=== PATIENT | female | born 1970 | race Caucasian/White ===

== ENCOUNTER 2016-10-23 21:23 | Observation (INO) | payer MEDICARE ==
[2016-10-23] MEDS ORDERED: Pepcid 20 MG VIAL IV ONE ×2 (22:03→22:31)
[2016-10-23] MEDS ORDERED: BABY ASPIRIN 81 MG CHEW PO ONE (22:03)
[2016-10-23 22:09] LABS: BASOPHIL % 0.3 % (0.0-0.4); Eosinophil % 3.7 % (0.00-5.0); Granulocytes % 53.3 % (36.0-66.0); Lymphocytes % 34.5 % (24.0-44.0); Mean Cell Volume 90.8 fl (78-100); Mean Corpuscular Hemoglobin 29.6 pg (26-32); Monocytes % 8.2 % (0.0-12.0); Platelet Count 225 K/mm3 (150-450); Red Blood Count 4.25 M/mm3 (4.1-5.4); Red Cell Distribution Width 14.2 % (11.5-14.0)
--- NOTE | 2016-10-23 22:10 | ERPHSYRPT ---
- History of Present Illness Time Seen by Provider: 10/23/16 21:44 Historian: patient, family (brother) Patient Subjective Stated Complaint: STATES ONSET OF CP AT 2100 TONIGHT WHILE AT REST - DIAPHORESIS - RADIATION TO THE LEFT ARM - STATES THAT SHE IS ALWAYS SOB Triage Nursing Assessment: WC TO TREATMENT AREA - ASSISTANCE TO CART X 2 - MOVES ALL EXTREMITIES WITH EQUAL WEAKNESS. ALERT/ORIENTED - FLAT AFFECT. SKIN FLUSHED/HOT/DIAPHORESIS - NO RASH/INJURY APPRECIATED. RESPS LABORED PER EXERTION Physician History: CC: left chest pain Hx: 46 y/o patient with excessive BMI. She has fam hx of heart disease. Tonite while watching TV she had left sided chest tightness. Told brother it was central chest. She had episode of diaphoresis and light headed. Mild but not much shortness of breath. She has hx of GERD and was born with single kidney. She has hx of valvular heart disease and arthritis. Pain now mostly gone. No rash. Timing/Duration: today (8PM) Location: substernal Chest Pain Radiation: no radiation Severity of Pain-Max: moderate Severity of Pain-Current: none Nitro Today/Relief: no nitro taken today Aspirin Treatment Today: 81 mg x 2, provided by ED Allergies/Adverse Reactions: cephalexin monohydrate [From Keflex] Allergy (Verified 10/23/16 21:25) meperidine HCl [From Demerol] Allergy (Verified 10/23/16 21:25) Home Medications: Cholecalciferol (Vitamin D3) [Vitamin D3] 1,000 unit PO DAILY 10/23/16 [History] Dexlansoprazole [Dexilant] 60 mg PO DAILY 10/23/16 [History] Famotidine [Pepcid] 40 mg PO BID 10/23/16 [History] Fluticasone/Salmeterol 115/21 [Advair Hfa 115/21 Common canister*] 2 puff IH BIDRT 10/23/16 [History] Levothyroxine Sodium [Synthroid] 200 mcg PO DAILY 10/23/16 [History] Liraglutide [Victoza 2-Alejandro] 0.6 mg SQ DAILY 10/23/16 [History] Meloxicam 7.5 mg [Mobic 7.5 MG] 7.5 mg PO DAILY 10/23/16 [History] Simvastatin [Zocor] 20 mg PO DAILY 10/23/16 [History] Hx Tetanus, Diphtheria Vaccination/Date Given: Yes Hx Influenza Vaccination/Date Given: No Hx Pneumococcal Vaccination/Date Given: No Immunizations Up to Date: Yes - Review of Systems Constitutional: No Fever, No Chills Eyes: No Symptoms Ears, Nose, & Throat: No Symptoms Respiratory: No Cough, No Dyspnea Cardiac: Chest Pain, No Edema, No Syncope Abdominal/Gastrointestinal: No Abdominal Pain, No Nausea, No Vomiting Genitourinary Symptoms: No Dysuria Musculoskeletal: No Back Pain Skin: No Rash Neurological: No Headache All Other Systems: Reviewed and Negative - Past Medical History Pertinent Past Medical History: Yes Neurological History: No Pertinent History ENT History: No Pertinent History Cardiac History: Congestive Heart Failure, Hypertension, Other Respiratory History: CHF, COPD, Pneumonia, Sleep Apnea Endocrine Medical History: Hypothyroidism Musculoskeletal History: Arthritis, Rheumatoid Arthritis GI Medical History: GERD, Gallbladder Disease History: Other Psycho-Social History: Depression Female Reproductive Disorders: Other Other Medical History: MORBID OBESETY. 2 HEART VALVES THAT DOESNT OPEN CORRECTLY ET FILL UP WITH EDEMA\. SCOLIOSIS. 2 BAD KNEES - Past Surgical History Past Surgical History: Yes Neuro Surgical History: No Pertinent History Cardiac: No Pertinent History Respiratory: No Pertinent History Gastrointestinal: Cholecystectomy Genitourinary: No Pertinent History Musculoskeletal: No Pertinent History Female Surgical History: Other Other Surgical History: LAPROSCOPIC SURGERY. TUBES IN TIFFANI EARS - Social History Smoking Status: Never smoker Exposure to second hand smoke: No Drug Use: none Patient Lives Alone: No - Female History Hx Last Menstrual Period: N/A - Nursing Vital Signs Temperature: 98.2 F Temperature Source: Oral Pulse Rate: 86 Respiratory Rate: 20 Pain Intensity: 7 - Physical Exam General Appearance: alert Eye Exam: PERRL/EOMI Ears, Nose, Throat Exam: normal ENT inspection, moist mucous membranes Neck Exam: normal inspection, non-tender, supple Respiratory Exam: normal breath sounds, lungs clear Cardiovascular Exam: regular rate/rhythm Gastrointestinal/Abdomen Exam: soft, No tenderness, No distention, No mass, No guarding Extremity Exam: normal inspection Neurologic Exam: alert, oriented x 3, cooperative, sensation nml, No motor deficits Skin Exam: warm, dry, No rash SpO2 Interpretation: normal SpO2: 98 Oxygen Delivery: Room Air - Course Nursing assessment & vital signs reviewed: Yes EKG Interpreted by Me: RATE (86), Sinus Rhythm, Left [place] Deviation, NORMAL INTERVALS (QTc 436), Non-specific ST Changes, Other (Poor R wave progression) - Radiology Exams cxr X-ray Interpretation: Reviewed by me, Negative (CM, poor inspiration) Ordered Tests: Active Orders 24 hr Category Date Time Status Aircraft [employer] STAT Care 10/23/16 22:03 Active Cath for Specimen-Straight STAT Care 10/23/16 22:04 Active EKG-ER Only STAT Care 10/23/16 22:03 Active IV Insertion STAT Care 10/23/16 22:03 Active Pulse Oximetry (ED) STAT Care 10/23/16 22:03 Active CHEST 1 VIEW (PORTABLE) Stat Exams 10/23/16 22:03 Taken CBC W DIFF Stat Lab 10/23/16 22:06 Completed CMP Stat Lab 10/23/16 22:06 Completed Free T4 Stat Lab 10/23/16 23:25 Ordered TROPONIN Q3H Lab 10/23/16 22:00 Completed TROPONIN Q3H Lab 10/24/16 01:15 Ordered TROPONIN Q3H Lab 10/24/16 04:15 Ordered TROPONIN Q3H Lab 10/24/16 07:15 Ordered TROPONIN Q3H Lab 10/24/16 10:15 Ordered TSH [TSH, 3RD Generation] Stat Lab 10/23/16 23:24 Ordered UA W/ MICROSCOPIC Stat Lab 10/23/16 22:25 Completed Medication Summary Discontinued Medications Generic Name Dose Route Start Last Admin Trade Name Freq PRN Reason Stop Dose Admin Aspirin 162 mg 10/23/16 22:03 10/23/16 22:32 Baby Aspirin 81 Mg Chew PO 10/23/16 22:04 162 mg STAT ONE Administration Aspirin Confirm 10/23/16 22:31 Baby Aspirin 81 Mg Chew Administered 10/23/16 22:32 Dose 162 mg .ROUTE .STK-MED ONE Famotidine 20 mg 10/23/16 22:03 10/23/16 22:32 Pepcid 20 Mg Vial IV 10/23/16 22:04 20 mg STAT ONE Administration Famotidine Confirm 10/23/16 22:31 Pepcid 20 Mg Vial Administered 10/23/16 22:32 Dose 20 mg IV .STK-MED ONE Lab/Rad Data: Laboratory Result Diagrams 10/23/16 22:06 10/23/16 22:06 Laboratory Results 10/23/16 10/23/16 10/23/16 Range/Units 22:25 22:06 22:06 WBC 7.0 (4.0-10.5) K/mm3 RBC 4.25 (4.1-5.4) M/mm3 Hgb 12.6 (12.0-16.0) gm/dl Hct 38.6 (35-47) % MCV 90.8 (78-100) fl MCH 29.6 (26-32) pg MCHC 32.6 (32-36) g/dl RDW 14.2 H (11.5-14.0) % Plt Count 225 (150-450) K/mm3 MPV 10.0 H (6-9.5) fl Gran % 53.3 (36.0-66.0) % Lymphocytes % 34.5 (24.0-44.0) % Monocytes % 8.2 (0.0-12.0) % Eosinophils % 3.7 (0.00-5.0) % Basophils % 0.3 (0.0-0.4) % Basophils # 0.02 (0-0.4) Sodium 147 H (136-145) mEq/L Potassium 4.0 (3.5-5.1) mEq/L Chloride 109 H (98-107) mEq/L Carbon Dioxide 26.6 (21-32) mEq/L Anion Gap 15.4 H (5-15) MEQ/L BUN 16 (9-20) mg/dL Creatinine 1.23 (0.55-1.30) mg/dl Estimated GFR 50 ML/MIN Glucose 108 (70-110) MG/DL Calcium 9.2 (8.5-10.1) mg/dL Total Bilirubin 0.4 (0.2-1.0) mg/dL AST 24 (15-37) U/L ALT 40 (12-78) U/L Alkaline Phosphatase 81 (46-116) U/L Troponin I (0.000-0.056) ng/ml Serum Total Protein 6.9 (6.4-8.2) gm/dL Albumin 3.5 (3.4-5.0) g/dL Ur Collection Type CATH Urine Color YELLOW (YELLOW) Urine Appearance CLEAR (CLEAR) Urine pH 5.0 (5-6) Ur Specific [place] 1.025 (1.005-1.025) Urine Protein TRACE (Negative) Urine Glucose (UA) NEGATIVE (NEGATIVE) mg/dL Urine Ketones TRACE (NEGATIVE) Urine Nitrite NEGATIVE (NEGATIVE) Urine Bilirubin SMALL (NEGATIVE) Urine Urobilinogen 0.2 (0-1) mg/dL Urine WBC (Auto) NEGATIVE (NEGATIVE) Urine RBC (Auto) NEGATIVE (0-5) [place]erson/ul Urine Bacteria RARE (NEGATIVE) /HPF Specimen Received 10/23/16:2225 10/23/16 Range/Units 22:00 WBC (4.0-10.5) K/mm3 RBC (4.1-5.4) M/mm3 Hgb (12.0-16.0) gm/dl Hct (35-47) % MCV (78-100) fl MCH (26-32) pg MCHC (32-36) g/dl RDW (11.5-14.0) % Plt Count (150-450) K/mm3 MPV (6-9.5) fl Gran % (36.0-66.0) % Lymphocytes % (24.0-44.0) % Monocytes % (0.0-12.0) % Eosinophils % (0.00-5.0) % Basophils % (0.0-0.4) % Basophils # (0-0.4) Sodium (136-145) mEq/L Potassium (3.5-5.1) mEq/L Chloride (98-107) mEq/L Carbon Dioxide (21-32) mEq/L Anion Gap (5-15) MEQ/L BUN (9-20) mg/dL Creatinine (0.55-1.30) mg/dl Estimated GFR ML/MIN Glucose (70-110) MG/DL Calcium (8.5-10.1) mg/dL Total Bilirubin (0.2-1.0) mg/dL AST (15-37) U/L ALT (12-78) U/L Alkaline Phosphatase (46-116) U/L Troponin I < 0.017 (0.000-0.056) ng/ml Serum Total Protein (6.4-8.2) gm/dL Albumin (3.4-5.0) g/dL Ur Collection Type Urine Color (YELLOW) Urine Appearance (CLEAR) Urine pH (5-6) Ur Specific [place] (1.005-1.025) Urine Protein (Negative) Urine Glucose (UA) (NEGATIVE) mg/dL Urine Ketones (NEGATIVE) Urine Nitrite (NEGATIVE) Urine Bilirubin (NEGATIVE) Urine Urobilinogen (0-1) mg/dL Urine WBC (Auto) (NEGATIVE) Urine RBC (Auto) (0-5) Herson/ul Urine Bacteria (NEGATIVE) /HPF Specimen Received - Progress Progress Note: 10/23/16 22:10 20 ga PIV placed with sono guidance right AC X 1 stick. 10/23/16 23:28 Remains pain free but feels poorly. She had dipahoresis and has famn hx heart disease. PERC neg. She feels most comfortable with chest pain observation. Called Dr Jovani Sheriff (oc) for chest pain tele obs. Discussed with : Valentino Will see patient in: hospital (observation) Counseled pt/family regarding: lab results, diagnosis, need for follow-up, rad results - Departure Time of Disposition: 23:28 Departure Disposition: Observation Clinical Impression: Chest pain Condition: Stable Critical Care Time: No Referrals: HENRIQUE MURO [Primary Care Provider] -
[2016-10-23 22:31] LABS: ALBUMIN 3.5 g/dL (3.4-5.0); ANION GAP 15.4 MEQ/L (5-15); BILIRUBIN,TOTAL 0.4 mg/dL (0.2-1.0); Carbon Dioxide 26.6 mEq/L (21-32); Total Protein 6.9 gm/dL (6.4-8.2)
[2016-10-23] MEDS ORDERED: BABY ASPIRIN 81 MG CHEW ONE (22:31)
[2016-10-23 22:33] LABS: Collection Type CATH
[2016-10-23 22:34] LABS: COMPLETE URINE MICROSCOPIC? YES
[2016-10-23 22:36] LABS: Bacteria RARE /HPF (NEGATIVE)
[2016-10-23] MEDS ORDERED: Senokot-S Tablet PO PRN (23:56)
[2016-10-23] MEDS ORDERED: TYLENOL 325 MG PO PRN (23:56)
[2016-10-23] MEDS ORDERED: MAALOX ES 30 ML UNIT DOSE PO PRN (23:56)
[2016-10-23] MEDS ORDERED: MILK OF MAGNESIA 30 ML PO PRN (23:56)
[2016-10-23] MEDS ORDERED: Zofran 4 MG/2 ML VIAL IV PRN (23:56)
--- NOTE | 2016-10-24 06:41 | PCM.HP ---
History of Present Illness - Chief Complaint Chief Complaint: chest pain Date: 10/24/16 History of Present Illness: is a 46 year old female. with morbid obesity who developed left sided chest pressure and pain yesterday evening that she had not had before she was short of breath with this as well. She had not had any coughing or illness prior to this no shortness of breath. she is currently only having some aching in her right rib cage now. The left sided chest pain has resolved. She had an echo in the distant past and was told she had leaking valves. She states she has never had a stress test. - Review of Systems Constitutional: No Symptoms Eyes: No Symptoms Ears, Nose, & Throat: No Symptoms Respiratory: Short Of Breath, No Cough Cardiac: Chest Pain, No Edema, No Syncope Abdominal/Gastrointestinal: No Abdominal Pain, No Nausea, No Vomiting, No Diarrhea Genitourinary Symptoms: No Dysuria Musculoskeletal: No Back Pain, No Neck Pain Skin: No Rash Neurological: No Dizziness, No Focal Weakness, No Sensory Changes Psychological: No Symptoms Endocrine: No Symptoms Hematologic/Lymphatic: No Symptoms Immunological/Allergic: No Symptoms Medications & Allergies Home Medications: Home Medication List Cholecalciferol (Vitamin D3) [Vitamin D3] 1,000 unit PO DAILY 10/23/16 [History Confirmed 10/24/16] Dexlansoprazole [Dexilant] 60 mg PO DAILY 10/23/16 [History Confirmed 10/24/16] Famotidine [Pepcid] 40 mg PO BID 10/23/16 [History Confirmed 10/24/16] Fluticasone/Salmeterol 115/21 [Advair Hfa 115/21 Common canister*] 2 puff IH BIDRT 10/23/16 [History Confirmed 10/24/16] Levothyroxine Sodium [Synthroid] 200 mcg PO DAILY 10/23/16 [History Confirmed ] Liraglutide [Victoza 2-Alejandro] 0.6 mg SQ DAILY 10/23/16 [History Confirmed 10/24/16 ] Meloxicam 7.5 mg [Mobic 7.5 MG] 7.5 mg PO DAILY 10/23/16 [History Confirmed 10/24/16] Simvastatin [Zocor] 20 mg PO DAILY 10/23/16 [History Confirmed 10/24/16] Allergies/Adverse Reactions: Allergies Allergy/AdvReac Type Severity Reaction Status Date / Time adhesive tape Allergy Mild Rash Verified 10/24/16 00:20 cephalexin monohydrate Allergy Verified 10/24/16 00:20 [From Keflex] meperidine HCl [From Demerol] Allergy Verified 10/24/16 00:20 - Past Medical History Past Medical History: Yes Neurological History: No Pertinent History ENT History: No Pertinent History Cardiac History: Congestive Heart Failure, Hypertension, Other Respiratory History: Asthma, CHF, COPD, Pneumonia, Sleep Apnea Endocrine Medical History: Diabetes Type II, Hypothyroidism Musculoskelatal History: Arthritis, Rheumatoid Arthritis GI Medical History: GERD, Gallbladder Disease, Polyps History: Other Pyscho-Social History: Anxiety, Depression Reproductive Disorders: Other Comment: MORBID OBESETY. 2 HEART VALVES THAT DOESNT OPEN CORRECTLY ET FILL UP WITH EDEMA\. SCOLIOSIS. 2 BAD KNEES. pt reports borderline DM, is on diabetic medication. pt reports that she had a cyst on her liver at one time - Female History Hx Last Menstrual Period: N/A Are you now?: No - Past Surgical History Past Surgical History: Yes Neuro Surgical History: No Pertinent History Cardiac History: No Pertinent History Respiratory Surgery: No Pertinent History GI Surgical History: Cholecystectomy Genitourinary Surgical Hx: No Pertinent History Musculskeletal Surgical Hx: No Pertinent History Female Surgical History: Other Other Surgical History: LAPROSCOPIC SURGERY. TUBES IN TIFFANI EARS. polyp removed from stomach - Social History Smoking Status: Never smoker Exposure to second hand smoke: Yes (sometimes) Alcohol: None Drug Use: none - Physical Exam Vital Signs: Vital Signs - 24 hr Temp Pulse Pulse Resp BP Pulse Ox 10/24/16 04:00 98.1 F 72 18 130/60 96 10/24/16 00:50 98.3 F 73 20 159/77 96 10/23/16 23:55 76 14 131/88 98 10/23/16 23:29 98.2 F 86 20 98 10/23/16 23:23 70 16 131/88 98 10/23/16 22:36 77 16 154/90 98 10/23/16 22:13 98 10/23/16 21:34 98.2 F 86 20 145/76 98 10/23/16 21:26 62 General Appearance: no apparent distress, obese Neurologic Exam: alert, oriented x 3, cooperative Eye Exam: No scleral icterus, No pale conjunctivae Ears, Nose, Throat Exam: moist mucous membranes Neck Exam: normal inspection, non-tender, supple Respiratory Exam: normal breath sounds, lungs clear, No chest tenderness, No respiratory distress Cardiovascular Exam: regular rate/rhythm, normal heart sounds, No murmur Gastrointestinal/Abdomen Exam: soft, normal bowel sounds, No tenderness Extremity Exam: normal inspection, No calf tenderness, No pedal edema Results - Labs Lab/Micro Results: Lab Results-Last 24 Hours 10/24/16 10/24/16 10/24/16 Range/Units 01:09 04:11 04:34 Troponin I < 0.017 < 0.017 (0.000-0.056) ng/ml Triglycerides 126 (30-200) mg/dL Cholesterol 149 (100-200) mg/dL LDL Cholesterol 90 (5-99) mg/dL HDL Cholesterol 42 (35-60) mg/dL Heart Disease Risk Ratio 3.5 - Other Procedures and Tests Respiratory Therapy 10/25/16 05:00 EKG ROUTINE 10/26/16 05:00 EKG ROUTINE 10/27/16 05:00 EKG ROUTINE Assessment/Plan (1) Chest pain Current Visit: Yes Status: Acute Assessment & Plan: she states a diagnosis of chf but has no history of echo or stress test that she can recall. SHe is a rather poor historian and gets her primary care through [facility]. we will do an echo today and the troponins have been negative thus far and no longer with chest pain will discharge home follow up pcp will arrange for her to have stress test outpatient done here as well pharmacological Code(s): R07.9 - CHEST PAIN, UNSPECIFIED (2) Sleep apnea Current Visit: Yes Status: Chronic Code(s): G47.30 - SLEEP APNEA, UNSPECIFIED (3) Morbid obesity Current Visit: Yes Status: Chronic Code(s): E66.01 - MORBID (SEVERE) OBESITY DUE TO EXCESS CALORIES (4) Type 2 diabetes mellitus Current Visit: Yes Status: Chronic (5) Hypothyroid Current Visit: Yes Status: Chronic Code(s): E03.9 - HYPOTHYROIDISM, UNSPECIFIED
[2016-10-24] MEDS ORDERED: MEDICATION INTERVENTION MC PRN (08:28)
[2016-10-24] MEDS ORDERED: Advair Hfa 115/21 Common canister IH SCH (08:30)
--- NOTE | 2016-10-24 08:56 | XRAY ---
Indication: Left chest pain. Comparison: January 06, 2014. Portable chest underinflated today accentuating the cardiopulmonary structures. No infiltrate, consolidation, or large effusion. Heart is not enlarged for AP portable technique. Bony thorax intact. Impression: Nonacute underinflated chest.
[2016-10-24] MEDS ORDERED: Ecotrin 325 MG PO SCH (10:00)
[2016-10-24] MEDS ORDERED: NON-FORMULARY ITEM (Famotidine [Pepcid] 40 MG) PO SCH (10:00)
[2016-10-24] MEDS ORDERED: LIRAGLUTIDE 0.6 MG SQ SCH (10:00)
[2016-10-24] MEDS ORDERED: ENOXAPARIN SODIUM SQ SCH (10:00)
[2016-10-24] MEDS ORDERED: Pepcid 20 MG PO SCH ×2 (10:00)
[2016-10-24] MEDS ORDERED: NON-FORMULARY ITEM (Dexlansoprazole [Dexilant] 60 MG) PO SCH (10:00)
[2016-10-24] MEDS ORDERED: SYNTHROID 100 MCG PO SCH (10:00)
[2016-10-24] MEDS ORDERED: NON-FORMULARY ITEM (Cholecalciferol (Vitamin D3) [Vitamin D3] 1,000 UNIT) PO SCH (10:00)
[2016-10-24] MEDS ORDERED: VITAMIN D PO SCH (10:00)
[2016-10-24] MEDS ORDERED: ZOCOR 20MG PO SCH (10:00)
[2016-10-24] MEDS ORDERED: Protonix 40MG Tablet PO SCH (10:00)
[2016-10-24 11:49] VITALS: BP 119/70; PULSE 72; O2SAT 96
--- NOTE | 2016-10-24 13:31 | PCM.DCORD ---
- Discharge Discharge Date: 10/24/16 Disposition: Home, Self-Care Condition: Stable Prescriptions: New Aspirin EC 325 mg [Ecotrin 325 MG] 325 mg PO DAILY #0 tablet.ec Continue Simvastatin [Zocor] 20 mg PO DAILY Liraglutide [Victoza 2-Alejandro] 0.6 mg SQ DAILY Famotidine [Pepcid] 40 mg PO BID Fluticasone/Salmeterol 115/21 [Advair Hfa 115/21 Common canister*] 2 puff IH BIDRT Dexlansoprazole [Dexilant] 60 mg PO DAILY Levothyroxine Sodium [Synthroid] 200 mcg PO DAILY Cholecalciferol (Vitamin D3) [Vitamin D3] 1,000 unit PO DAILY Meloxicam 7.5 mg [Mobic 7.5 MG] 7.5 mg PO DAILY Instructions: Heart-Healthy Diet, Atypical Chest Pain Additional Instructions: Come to [facility] Res[facility] Therapy Department for Cardiac Stress test on at 6:00am. Follow up with: HENRIQUE MURO [Primary Care Provider] - 11/07/16 11:15 am Forms: Discharge Instructions
--- NOTE | 2016-10-24 14:54 | ECHO ---
DATE OF PROCEDURE: 10/24/2016 CLINICAL INFORMATION: Chest pain. The M-mode 2D, and Doppler echocardiogram including color flow Doppler shows normal contractility of the left ventricle. The left ventricle was normal in size with a dimension of 5.5 cm. There is no apical thrombus noted. The left ventricular wall thickness is normal with a septal wall thickness of 0.8 cm. The left ventricular posterior wall thickness is 0.8 cm. There is normal contractility of the left ventricle with an ejection fraction calculated at 74%. There is evidence of impaired left ventricular relaxation with an E to A in flow velocity ratio of 0.9. The right ventricle is grossly normal. The left atrium is normal with a dimension of 2.3 cm. The interatrial septum is not well visualized. The right atrium is not well visualized. The aortic valve opens well. There is mild aortic regurgitation. The mitral valve was grossly normal. The tricuspid valve is grossly normal. The pulmonic valve is not well visualized. The aortic root is normal with a dimension of 3.1 cm. There is no pericardial effusion present. There are very limited apical views secondary to body habitus. IMPRESSION: 1) MILD AORTIC REGURGITATION. 2) NORMAL CONTRACTILITY OF THE LEFT VENTRICLE. 3) THERE IS EVIDENCE OF IMPAIRED LEFT VENTRICULAR RELAXATION.
== END 2016-10-24 13:30 | disposition home or self-care (01) ==
LOC: ED 21:23 → MED SURG 23:41
PROVIDERS: ADMIT Family Medicine; ATTEND Family Medicine
DX: R07.89 Other chest pain (principal); G47.30 Sleep apnea, unspecified; E66.01 Morbid (severe) obesity due to excess calories; E11.9 Type 2 diabetes mellitus without complications; E03.9 Hypothyroidism, unspecified; I50.9 Heart failure, unspecified; I10 Essential (primary) hypertension; M19.90 Unspecified osteoarthritis, unspecified site; K21.9 Gastro-esophageal reflux disease without esophagitis; F41.8 Other specified anxiety disorders; I35.1 Nonrheumatic aortic (valve) insufficiency; J45.909 Unspecified asthma, uncomplicated; Z79.899 Other long term (current) drug therapy
CPT/HCPCS: 36000; 36415; 71010; 80053; 80061; 81000; 82306; 82962; 83721; 84439; 84443; 84484; 85025; 93005; 93041; 93306; 96374; 99285; G0378; J1650; P9612; A9270-GY

== ENCOUNTER 2019-02-14 23:04 | Emergency (ER) | payer MEDICARE ==
[2019-02-14] MEDS ORDERED: Norco 10/325 MG Tablet PO ONE (23:33)
--- NOTE | 2019-02-14 23:42 | ERPHSYRPT ---
- History of Present Illness Time Seen by Provider: 02/14/19 23:15 Source: patient Exam Limitations: clinical condition Patient Subjective Stated Complaint: pt states she turned and heard a pop in her lt knee and had immediate pain 10/10. states pain is now 7/10 and worse when bearing weight Triage Nursing Assessment: pt alert and oriented, answers questions approp. pt arrive per ambulance. transfers to [facility] with total assist of 4. respirations nonlabored with lungs cta. skin pink warm and dry. pedal pulse to lle wnl. Physician History: PATIENT WITH A HISTORY OF CHF, COPD, SLEEP APNEA, HYPERTENSION, RHEUMATOID ARTHRITIS, BILATERAL CHRONIC KNEE PAIN, AMBULATES WITH WALKER COMPLAINS OF INCREASING KNEE PAIN WHILE STANDING AND PIVOTING. DENIES FALL, TRAUMA OR INJURY. Method of Injury: twisted Occurred: just prior to arrival Quality: sharpness, throbbing Severity of Pain-Max: severe Severity of Pain-Current: severe Lower Extremities Pain: knee: bilateral Modifying Factors: Improves With: movement Associated Symptoms: unable to bear weight Allergies/Adverse Reactions: adhesive tape Allergy (Mild, Verified 02/14/19 23:17) Rash cephalexin monohydrate [From Keflex] Allergy (Verified 02/14/19 23:17) meperidine HCl [From Demerol] Allergy (Verified 02/14/19 23:17) Home Medications: Famotidine [Pepcid] 40 mg PO BID 10/23/16 [History] Fluticasone/Salmeterol 115/21 [Advair Hfa 115/21 Common canister*] 2 puff IH BIDRT 10/23/16 [History] Levothyroxine Sodium [Synthroid] 200 mcg PO DAILY 10/23/16 [History] Simvastatin [Zocor] 20 mg PO DAILY 10/23/16 [History] Bupropion HCl Xl 150 mg [Wellbutrin XL 150 MG] 150 mg PO DAILY 02/14/19 [ History] Hx Tetanus, Diphtheria Vaccination/Date Given: Yes Hx Influenza Vaccination/Date Given: No Hx Pneumococcal Vaccination/Date Given: No Immunizations Up to Date: Yes - Review of Systems Constitutional: No Symptoms Eyes: No Symptoms Ears, Nose, & Throat: No Symptoms Respiratory: No Symptoms Cardiac: No Symptoms Abdominal/Gastrointestinal: No Symptoms Musculoskeletal: Joint Pain, Joint Swelling Psychological: No Symptoms Endocrine: No Symptoms Hematologic/Lymphatic: No Symptoms - Past Medical History Pertinent Past Medical History: Yes Neurological History: No Pertinent History ENT History: No Pertinent History Cardiac History: Other Respiratory History: Asthma, Bronchitis, COPD Endocrine Medical History: Hypothyroidism, Other Musculoskeletal History: Osteoarthritis GI Medical History: GERD, Gallbladder Disease, Polyps History: Other Psycho-Social History: Anxiety, Depression Female Reproductive Disorders: Other Other Medical History: Pt only born with one kidney, 2 heart valves that "dont open right" - Past Surgical History Past Surgical History: Yes Neuro Surgical History: No Pertinent History Cardiac: No Pertinent History Respiratory: No Pertinent History Gastrointestinal: Cholecystectomy Genitourinary: No Pertinent History Musculoskeletal: No Pertinent History Female Surgical History: Other Other Surgical History: LAPROSCOPIC SURGERY. TUBES IN TIFFANI EARS. polyp removed from stomach - Social History Smoking Status: Never smoker Exposure to second hand smoke: Yes (sometimes) Drug Use: none Patient Lives Alone: Yes - Female History Hx Now: No - Nursing Vital Signs Nursing Vital Signs: Initial Vital Signs Temperature 97.8 F 02/14/19 23:09 Pulse Rate 81 02/14/19 23:09 Respiratory Rate 18 02/14/19 23:09 Blood Pressure 133/81 02/14/19 23:09 Pain Scale Pain Intensity 7 - Physical Exam General Appearance: alert Eyes, Ears, Nose, Throat Exam: moist mucous membranes Neck Exam: non-tender, supple Cardiovascular/Respiratory Exam: chest non-tender, normal breath sounds, regular rate/rhythm, no respiratory distress Gastrointestinal/Abdominal Exam: non-tender (OBESE), soft Knees Exam: bilateral knee: normal inspection, pain, soft tissue tenderness ( TENDERNESS BILAT MEDIAL/LATERAL FEMORAL CONDYLES, PATELLA, MOBILE AND MIDLINE, NO JOINT LAXITY UPON VARUS/VALGUS STRESS, NEGATIVE ANTERIOR DRAW SIGN) Foot Exam: bilateral foot: other (BILAT PEDIS PULSE 2+) Neuro/Tendon Exam: normal sensation, normal motor functions Mental Status Exam: alert, oriented x 3 SpO2 Interpretation: normal SpO2: 97 - Radiology Exams Right Knee X-ray Interpretation: Interpreted by me, Negative, No Fracture (NARROWING JOINT SPACE, MODERATE DEGENERATIVE ARTHRITIS) Left X-ray Interpretation: Interpreted by me, Negative, No Fracture (MODERATE DEGENERATIVE ARTHRITIS. NARROWING JOINT SPACE) Ordered Tests: Active Orders 24 hr Category Date Time Status KNEE (3 VIEWS) Stat Exams 02/15/19 00:10 Ordered KNEE (3 VIEWS) Stat Exams 02/15/19 00:12 Ordered Medication Summary Discontinued Medications Generic Name Dose Route Start Last Admin Trade Name Lizbeth PRN Reason Stop Dose Admin Hydrocodone Bitart/Acetaminophen 1 tab 02/14/19 23:33 02/14/19 23:49 [place] 10/325 Mg Tablet PO 02/14/19 23:34 1 tab STAT ONE Administration Hydrocodone Bitart/Acetaminophen Confirm 02/14/19 23:48 [place] 10/325 Mg Tablet Administered 02/14/19 23:49 Dose 1 tab .ROUTE .[facility]-MED ONE - Progress Progress Note: 02/14/19 23:43 ADMINISTERED NORCO 10/325 ORALLY 02/15/19 00:02, PREDNISONE 40MG ORALLY 02/15/19 00:56 Counseled pt/family regarding: diagnosis, need for follow-up, rad results - Departure Departure Disposition: Home Clinical Impression: BILATERAL KNEE PAIN, DEGENERATIVE ARTHRITIS Condition: Stable Critical Care Time: No Referrals: LADONNA WEAVER MD [Primary Care Provider] - Additional Instructions: NORCO 5/325 EVERY 6 HOURS FOR PAIN. PREDNISONE 20MG, 2 TABLETS DAILY FOR 4 DAYS. CONSULT YOU PRIMARY CARE PROVIDER FOR EVALUATION AND TREATMENT. AMBULATE WITH WALKER ASSISTANCE. Prescriptions: Hydrocodone/APAP 5-325 Tab^^^ [[place] 5-325 Tablet^^^] 1 each PO Q6HPRN PRN #8 tablet MDD 6 PRN Reason: Pain Prednisone 20 mg [Deltasone 20 mg] 2 tab PO DAILY #8 tablet
[2019-02-14] MEDS ORDERED: Norco 10/325 MG Tablet ONE (23:48)
[2019-02-15] MEDS ORDERED: Norco 10/325 MG Tablet PO ONE (00:57)
[2019-02-15] MEDS ORDERED: DELTASONE 20 MG PO ONE (00:57)
[2019-02-15] MEDS ORDERED: DELTASONE 20 MG ONE (01:18)
[2019-02-15] MEDS ORDERED: Norco 10/325 MG Tablet ONE (01:18)
[2019-02-15 01:35] VITALS: BP 125/75
[2019-02-15 01:40] VITALS: PULSE 81; O2SAT 96
--- NOTE | 2019-02-15 07:54 | XRAY ---
Indication: Chronic pain. Morbid obesity. Comparison: None 3 views of the left knee demonstrates mild/moderate tricompartmental degenerative changes, greatest lateral compartment. Lateral knee heterotopic ossification either degenerative versus old injury. No other bony, articular, or soft tissue abnormalities.
--- NOTE | 2019-02-15 07:56 | XRAY ---
Indication: Chronic pain. Morbid obesity. Comparison: None 3 views of the right knee demonstrates moderate/advanced tricompartmental degenerative changes, greatest lateral compartment. Tiny tibial tubercle spurring. No other bony, articular, or soft tissue abnormalities.
== END 2019-02-15 01:30 | disposition home or self-care (01) ==
LOC: ED 23:04
DX: M25.562 Pain in left knee (principal); M25.561 Pain in right knee; M19.90 Unspecified osteoarthritis, unspecified site; X50.1XXA Overexertion from prolonged static or awkward postures, initial encounter; I50.9 Heart failure, unspecified; J44.9 Chronic obstructive pulmonary disease, unspecified; G47.30 Sleep apnea, unspecified; I10 Essential (primary) hypertension; M06.9 Rheumatoid arthritis, unspecified; Z79.899 Other long term (current) drug therapy
CPT/HCPCS: 73562; 99284; A9270-GY

== ENCOUNTER 2020-04-03 21:05 | Emergency (ER) | payer MEDICARE ==
--- NOTE | 2020-04-03 21:47 | ERPHSYRPT ---
- History of Present Illness Time Seen by Provider: 04/03/20 21:30 Patient Subjective Stated Complaint: pt reports tiffani feet and tiffani facial numbness that began last night "after I went to the dentist"; pt also reports being informed of exposure to a positive CoVID pt recently; denies SOB, cough, fever Triage Nursing Assessment: a/ox4; resp non labored and regular; skin p/w/d; able to move all extremities; walks short distances with slow steady gait with assist of 1 Physician History: 49 years old female with a history of anxiety, depression, hypothyroidism, arthritis, difficulty ambulation at her baseline and generalized weakness presented in the ER with worsening generalized weakness and fatigue since yesterday along with numbness in the fingertips/toe tips and whole face. Patient report initially started on the left face yesterday and now her whole face is numb. No difficulty speech or visual symptoms. Denies any focal weakness but weakness all over which according to patient is at her baseline. She denies any fever chills or cough. Denies any chest pain palpitations or shortness of breath. Denies any recent fall or trauma to the head. Patient a lso concerned about getting tested for COVID-19 as she was at the religion where multiple other people turned out to be positive but exposure was more than 2 weeks ago. Timing/Duration: yesterday, gradual onset, worse Severity: moderate Character of Deficits: altered sensation, Left Facial, Right Facial Baseline/Normal Cognition: alert oriented x 3 Current Cognition: alert oriented x 3 Baseline Gait: uses cane Associated Symptoms: fatigue, weakness (Generalized), numbness/tingling in legs/feet, trouble walking, headache, No confusion, No loss of consciousness, No nausea, No vomiting, No seizures, No slurred speech, No vision changes, No chest pain Allergies/Adverse Reactions: adhesive tape Allergy (Mild, Verified 04/03/20 22:24) Rash cephalexin monohydrate [From Keflex] Allergy (Verified 04/03/20 22:24) meperidine HCl [From Demerol] Allergy (Verified 04/03/20 22:24) Home Medications: Famotidine [Pepcid] 40 mg PO BID 10/23/16 [History] Fluticasone/Salmeterol 115/21 [Advair Hfa 115/21 Common canister*] 2 puff IH BIDRT 10/23/16 [History] Levothyroxine Sodium [Synthroid] 300 mcg PO DAILY 10/23/16 [History] Bupropion HCl Xl 150 mg [Wellbutrin XL 150 MG] 300 mg PO DAILY 02/14/19 [History] Albuterol 8 gm Mdi Hfa [Ventolin Hfa MDI] 2 puffs OINH DAILY 04/03/20 [History] Brexpiprazole [Rexulti] 1 tab PO DAILY 04/03/20 [History] Cetirizine HCl [Zyrtec] 1 tab PO DAILY 04/03/20 [History] Montelukast Sodium 10 mg [Singulair 10 MG] 1 tab PO DAILY 04/03/20 [History] Topiramate 1 tab PO DAILY 04/03/20 [History] Hx Tetanus, Diphtheria Vaccination/Date Given: Yes Hx Influenza Vaccination/Date Given: No (refuses) Hx Pneumococcal Vaccination/Date Given: No (refuses) Immunizations Up to Date: Yes Travel Risk - International Travel Have you traveled outside of the country in past 3 weeks: No - Coronavirus Screening Are you exhibiting any of the following symptoms?: No Close contact with a COVID-19 positive Pt in past 14-21 Days: Yes - Review of Systems Constitutional: Fatigue, Weakness Eyes: No Symptoms Ears, Nose, & Throat: No Symptoms Respiratory: No Symptoms Cardiac: No Symptoms Abdominal/Gastrointestinal: No Symptoms Genitourinary Symptoms: No Symptoms Musculoskeletal: Arthralgias, Joint Redness, Joint Pain Neurological: Headache, Sensory Changes Psychological: Anxiety, Depression Endocrine: No Symptoms Hematologic/Lymphatic: No Symptoms Immunological/Allergic: No Symptoms - Past Medical History Pertinent Past Medical History: Yes Neurological History: No Pertinent History ENT History: No Pertinent History Cardiac History: Other Respiratory History: Asthma, Bronchitis, CHF, COPD, Sleep Apnea Endocrine Medical History: Hypoglycemia, Hypothyroidism Musculoskeletal History: Osteoarthritis GI Medical History: GERD, Gallbladder Disease, Polyps History: Other Psycho-Social History: Anxiety, Depression Female Reproductive Disorders: Other Other Medical History: BONE ON BONE O.A. WHICH IS END-STAGE; SUBLUX OF KNEE JOINT - Past Surgical History Past Surgical History: Yes Neuro Surgical History: No Pertinent History Cardiac: No Pertinent History Respiratory: No Pertinent History Gastrointestinal: Cholecystectomy Genitourinary: No Pertinent History Musculoskeletal: No Pertinent History Female Surgical History: Other Other Surgical History: LAPROSCOPIC SURGERY. TUBES IN TIFFANI EARS. polyp removed from stomach - Social History Smoking Status: Never smoker Exposure to second hand smoke: Yes (family) Drug Use: none Patient Lives Alone: No - Female History Hx Now: No - Nursing Vital Signs Nursing Vital Signs: Initial Vital Signs Temperature 97.4 F 04/03/20 21:21 Pulse Rate 64 04/03/20 21:21 Respiratory Rate 20 04/03/20 21:21 Blood Pressure 149/73 04/03/20 21:21 O2 Sat by Pulse Oximetry 97 04/03/20 21:21 Pain Scale Pain Intensity 7 - Pauline Coma Scale Best Eye Response (Pauline): (4) open spontaneously Best Verbal Response (Pauline): (5) oriented Best Motor Response (Pauline): (6) obeys commands Pauline Total: 15 - Physical Exam General Appearance: no apparent distress, alert, anxiety Eye Exam: bilateral eye: normal inspection, PERRL, EOMI Ears, Nose, Throat Exam: normal ENT inspection, TMs normal, pharynx normal Neck Exam: normal inspection, non-tender, supple, full range of motion Respiratory: normal breath sounds, lungs clear Cardiovascular: regular rate/rhythm, normal heart sounds Back Exam: normal inspection, No CVA tenderness Extremity Exam: normal range of motion, swelling (Generalized nonpitting), other Mental Status: alert, oriented x 3, cooperative sales agent business services Exam: normal hearing, normal speech, PERRL Coordination/Gait: normal finger to nose Motor/Sensory: no motor deficit, sensory deficit (Decreased sensations of touch bilateral face.) Skin Exam: normal color SpO2 Interpretation: normal SpO2: 97 O2 Delivery: Room Air - Course Nursing assessment & vital signs reviewed: Yes EKG Interpreted by Me: RATE (68), Sinus Rhythm, NORMAL AXIS (Nonspecific T wave changes), NORMAL INTERVALS, Non-specific ST Changes Ordered Tests: Active Orders 24 hr Category Date Time Status EKG-ER Only STAT Care 04/03/20 21:48 Active IV Insertion STAT Care 04/03/20 21:48 Active NPO (ED) STAT Care 04/03/20 21:49 Active CHEST 1 VIEW (PORTABLE) Stat Exams 04/03/20 21:49 Taken HEAD WITHOUT CONTRAST [CT] Stat Exams 04/03/20 21:49 Taken CBC W DIFF Stat Lab 04/03/20 22:35 Completed CMP Stat Lab 04/03/20 22:35 Completed MAG [MAGNESIUM] Stat Lab 04/03/20 22:35 Completed TROPONIN Q3H Lab 04/03/20 22:35 Completed TSH [TSH, 3RD Generation] Stat Lab 04/03/20 22:35 Completed UA W/RFX UR CULTURE Stat Lab 04/03/20 23:55 Completed Medication Summary Discontinued Medications Generic Name Dose Route Start Last Admin Trade Name Lizbeth PRN Reason Stop Dose Admin Sodium Chloride 1,000 mls @ 999 mls/hr 04/03/20 21:48 04/03/20 22:18 Sodium Chloride 0.9% 1000 Ml IV 04/03/20 22:48 999 mls/hr .Q1H1M STA Administration Sodium Chloride Confirm 04/03/20 22:00 Sodium Chloride 0.9% 1000 Ml Administered 04/03/20 22:01 Dose 1,000 mls @ ud .ROUTE .STK-MED ONE Nitrofurantoin Macrocrystals 100 mg 04/04/20 00:20 04/04/20 00:25 Macrobid 100mg Capsule PO 04/04/20 00:21 100 mg STAT ONE Administration Nitrofurantoin Macrocrystals Confirm 04/04/20 00:23 Macrobid 100mg Capsule Administered 04/04/20 00:24 Dose 100 mg .ROUTE .STK-MED ONE Lab/Rad Data: Laboratory Result Diagrams 04/03/20 22:35 04/03/20 22:35 Laboratory Results 04/03/20 04/03/20 04/03/20 Range/Units 23:55 22:35 22:35 WBC (4.0-10.5) K/mm3 RBC (4.1-5.4) M/mm3 Hgb (12.0-16.0) gm/dl Hct (35-47) % MCV (78-100) fl MCH (26-32) pg MCHC (32-36) g/dl RDW (11.5-14.0) % Plt Count (150-450) K/mm3 MPV (7.5-11.0) fl Gran % (36.0-66.0) % Eos # (Auto) (0-0.5) Absolute Lymphs (auto) (1.0-4.6) Absolute Monos (auto) (0.0-1.3) Lymphocytes % (24.0-44.0) % Monocytes % (0.0-12.0) % Eosinophils % (0.00-5.0) % Basophils % (0.0-0.4) % Absolute Granulocytes (1.4-6.9) Basophils # (0-0.4) Sodium (137-145) mmol/L Potassium (3.5-5.1) mmol/L Chloride (98-107) mmol/L Carbon Dioxide (22-30) mmol/L Anion Gap (5-15) MEQ/L BUN (7-17) mg/dL Creatinine (0.52-1.04) mg/dL Estimated GFR ML/MIN Glucose (74-106) mg/dL Calcium (8.4-10.2) mg/dL Magnesium 2.3 (1.6-2.3) mg/dL Total Bilirubin (0.2-1.3) mg/dL AST (14-36) U/L ALT (0-35) U/L Alkaline Phosphatase (38-126) U/L Troponin I < 0.012 (0.000-0.034) ng/mL Serum Total Protein (6.3-8.2) g/dL Albumin (3.5-5.0) g/dL TSH 3rd Generation 3.870 (0.47-4.68) mIU/L Urine Color YELLOW (YELLOW) Urine Appearance CLEAR (CLEAR) Urine pH 5.0 (5-6) Ur Specific [place] 1.019 (1.005-1.025) Urine Protein NEGATIVE (Negative) Urine Ketones NEGATIVE (NEGATIVE) Urine Blood NEGATIVE (0-5) Herson/ul Urine Nitrite NEGATIVE (NEGATIVE) Urine Bilirubin NEGATIVE (NEGATIVE) Urine Urobilinogen NEGATIVE (0-1) mg/dL Ur Leukocyte Esterase TRACE (NEGATIVE) Urine WBC (Auto) 6-10 (0-5) /HPF Urine RBC (Auto) NONE (0-2) /HPF U Epithel Cells (Auto) RARE (FEW) /HPF Urine Bacteria (Auto) NONE (NEGATIVE) /HPF Urine Culture Reflexed NO (NO) Urine Glucose NEGATIVE (NEGATIVE) mg/dL 04/03/20 04/03/20 Range/Units 22:35 22:35 WBC 7.6 (4.0-10.5) K/mm3 RBC 3.97 L (4.1-5.4) M/mm3 Hgb 11.8 L (12.0-16.0) gm/dl Hct 36.6 (35-47) % MCV 92.2 (78-100) fl MCH 29.7 (26-32) pg MCHC 32.2 (32-36) g/dl RDW 14.7 H (11.5-14.0) % Plt Count 235 (150-450) K/mm3 MPV 10.1 (7.5-11.0) fl Gran % 56.4 (36.0-66.0) % Eos # (Auto) 0.31 (0-0.5) Absolute Lymphs (auto) 2.22 (1.0-4.6) Absolute Monos (auto) 0.77 (0.0-1.3) Lymphocytes % 29.1 (24.0-44.0) % Monocytes % 10.1 (0.0-12.0) % Eosinophils % 4.1 (0.00-5.0) % Basophils % 0.3 (0.0-0.4) % Absolute Granulocytes 4.31 (1.4-6.9) Basophils # 0.02 (0-0.4) Sodium 138 (137-145) mmol/L Potassium 3.8 (3.5-5.1) mmol/L Chloride 105 (98-107) mmol/L Carbon Dioxide 25 (22-30) mmol/L Anion Gap 11.9 (5-15) MEQ/L BUN 23 H (7-17) mg/dL Creatinine 1.33 H (0.52-1.04) mg/dL Estimated GFR 44.9 ML/MIN Glucose 95 (74-106) mg/dL Calcium 9.2 (8.4-10.2) mg/dL Magnesium (1.6-2.3) mg/dL Total Bilirubin 0.50 (0.2-1.3) mg/dL AST 20 (14-36) U/L ALT 18 (0-35) U/L Alkaline Phosphatase 77 (38-126) U/L Troponin I (0.000-0.034) ng/mL Serum Total Protein 6.7 (6.3-8.2) g/dL Albumin 4.0 (3.5-5.0) g/dL TSH 3rd Generation (0.47-4.68) mIU/L Urine Color (YELLOW) Urine Appearance (CLEAR) Urine pH (5-6) Ur Specific [place] (1.005-1.025) Urine Protein (Negative) Urine Ketones (NEGATIVE) Urine Blood (0-5) Herson/ul Urine Nitrite (NEGATIVE) Urine Bilirubin (NEGATIVE) Urine Urobilinogen (0-1) mg/dL Ur Leukocyte Esterase (NEGATIVE) Urine WBC (Auto) (0-5) /HPF Urine RBC (Auto) (0-2) /HPF U Epithel Cells (Auto) (FEW) /HPF Urine Bacteria (Auto) (NEGATIVE) /HPF Urine Culture Reflexed (NO) Urine Glucose (NEGATIVE) mg/dL - Progress Progress: improved, re-examined Progress Note: 04/04/20 00:17 49 years old is evaluated for generalized weakness fatigue with fingertips/toes numbness and facial numbness. She has no focal weakness. She is given a fluid bolus. I have obtained CT head which is negative. Chest x-ray on my interpretation do not see any focal consolidation. She does not have any difficulty breathing. She has a grossly unremarkable work-up including CBC and CMP. On reevaluation she is feeling better and numbness on the face is improved. I do not think patient has a stroke but more of a metabolic cause. She does have UTI which could be the reason for her generalized weakness. She is started on Macrobid. This point I do not think patient needs any further work-up and is stable for discharge with outpatient follow-up. 04/04/20 00:22 Counseled pt/family regarding: lab results, diagnosis, need for follow-up, rad results - Departure Departure Disposition: Home Clinical Impression: Generalized weakness UTI (urinary tract infection) Qualifiers: Urinary tract infection type: site unspecified Hematuria presence: without hematuria Qualified Code(s): N39.0 - Urinary tract infection, site not specified Condition: Stable Critical Care Time: No Referrals: LADONNA WEAVER MD [Primary Care Provider] - (1-2 days for reevaluation) Instructions: Generalized Weakness (DC) Additional Instructions: Drink plenty of fluids. Follow-up with primary care for reevaluation. Return to ER for any worsening. Prescriptions: Nitrofurantoin Monohyd/M-Cryst [Macrobid 100 mg Capsule] 100 mg PO BID 5 Days #10 capsule
[2020-04-03] MEDS ORDERED: Sodium Chloride 0.9% 1000 ML 1,000 ML IV STA (21:48)
[2020-04-03] MEDS ORDERED: Sodium Chloride 0.9% 1000 ML 1,000 ML ONE (22:00)
[2020-04-03 22:45] LABS: Absolute Neutrophil Ct (ANC) 4.31 (1.4-6.9); BASOPHIL % 0.3 % (0.0-0.4); Basophil (Absolute #) 0.02 (0-0.4); Eosinophil % 4.1 % (0.00-5.0); Eosinophil (Absolute #) 0.31 (0-0.5); Hematocrit 36.6 % (35-47); Hemoglobin 11.8 gm/dl (12.0-16.0); Lymphocyte (Absolute #) 2.22 (1.0-4.6); Lymphocytes % 29.1 % (24.0-44.0); Mean Cell Volume 92.2 fl (78-100); Mean Corpuscular Hemoglobin 29.7 pg (26-32); Mean Corpuscular Hgb Concent. 32.2 g/dl (32-36); Mean Platelet Volume 10.1 fl (7.5-11.0); Monocyte (Absolute #) 0.77 (0.0-1.3); Monocytes % 10.1 % (0.0-12.0); Neutrophil % 56.4 % (36.0-66.0); Platelet Count 235 K/mm3 (150-450); Red Blood Count 3.97 M/mm3 (4.1-5.4); Red Cell Distribution Width 14.7 % (11.5-14.0); White Blood Count 7.6 K/mm3 (4.0-10.5)
[2020-04-03 23:02] LABS: ANION GAP 11.9 MEQ/L (5-15); BILIRUBIN,TOTAL 0.5 mg/dL (0.2-1.3); Calcium 9.2 mg/dL (8.4-10.2); Creatinine 1 1.33 mg/dL (0.52-1.04); Potassium 3.8 mmol/L (3.5-5.1); Total Protein 6.7 g/dL (6.3-8.2)
[2020-04-03 23:32] LABS: MAGNESIUM 2.3 mg/dL (1.6-2.3); TSH, 3RD Generation 3.87 mIU/L (0.47-4.68)
[2020-04-04 00:03] LABS: Appearance CLEAR (CLEAR); Bilirubin NEGATIVE (NEGATIVE); Blood NEGATIVE Ery/ul (0-5); Epithelial Cells RARE /HPF (FEW); Glucose NEGATIVE (NEGATIVE); Ketones NEGATIVE (NEGATIVE); Leukocyte Esterase TRACE (NEGATIVE); Nitrite NEGATIVE (NEGATIVE); Protein,Urine Dip NEGATIVE (Negative); Specific Gravity 1.019 (1.005-1.025); Urobilinogen NEGATIVE mg/dL (0-1)
[2020-04-04 00:07] VITALS: BP 136/70; PULSE 70; O2SAT 97
[2020-04-04] MEDS ORDERED: Macrobid 100MG Capsule PO ONE (00:20)
[2020-04-04] MEDS ORDERED: Macrobid 100MG Capsule ONE (00:23)
--- NOTE | 2020-04-04 08:37 | XRAY ---
Indication: Weakness and bilateral facial/feet numbness. Comparison: October 23, 2016. Portable apical lordotic chest limited due to body habitus with external soft tissue partially obscuring right lung. Remaining heart and lungs unremarkable. Bony thorax intact.
--- NOTE | 2020-04-04 08:39 | XRAY ---
Indication: Bilateral facial and feet numbness. Multiple contiguous axial images obtained through the head without contrast. Comparison: June 01, 2015. Again normal appearing brain parenchyma, ventricles, and bony calvarium. Visualized paranasal sinuses and mastoid air cells are clear. Impression: Continued normal CT head without contrast exam. Comment: Preliminary interpretation was made by [facility]. No critical discrepancy.
== END 2020-04-04 00:50 | disposition home or self-care (01) ==
LOC: ED 21:05
DX: N39.0 Urinary tract infection, site not specified (principal); R53.1 Weakness; R53.83 Other fatigue; E03.9 Hypothyroidism, unspecified; F41.9 Anxiety disorder, unspecified; Z79.899 Other long term (current) drug therapy; R51 Headache
CPT/HCPCS: 36000; 36415; 70450; 71045; 80053; 81001; 83735; 84443; 84484; 85025; 93005; 96360; 99284; A9270-GY

== ENCOUNTER 2021-07-29 21:26 | Emergency (ER) | payer MEDICARE ==
[2021-07-29 22:38] LABS: Absolute Neutrophil Ct (ANC) 4.54 (1.4-6.9); BASOPHIL % 0.4 % (0.0-0.4); Basophil (Absolute #) 0.03 (0-0.4); Eosinophil % 3.8 % (0.00-5.0); Hematocrit 39.6 % (35-47); Hemoglobin 12.6 gm/dl (12.0-16.0); Lymphocyte (Absolute #) 2.33 (1.0-4.6); Lymphocytes % 29.7 % (24.0-44.0); Mean Cell Volume 91.7 fl (78-100); Mean Corpuscular Hemoglobin 29.2 pg (26-32); Mean Corpuscular Hgb Concent. 31.8 g/dl (32-36); Mean Platelet Volume 9.8 fl (7.5-11.0); Monocyte (Absolute #) 0.65 (0.0-1.3); Monocytes % 8.3 % (0.0-12.0); Neutrophil % 57.8 % (36.0-66.0); Platelet Count 235 K/mm3 (150-450); Red Blood Count 4.32 M/mm3 (4.1-5.4); Red Cell Distribution Width 14.4 % (11.5-14.0); White Blood Count 7.9 K/mm3 (4.0-10.5)
--- NOTE | 2021-07-29 22:41 | ERPHSYRPT ---
- History of Present Illness Time Seen by Provider: 07/29/21 21:40 Source: patient Exam Limitations: no limitations Patient Subjective Stated Complaint: Patient c/o right leg pain. Indicates pain is too severe to walk or stand on right leg. She denies any falls or recent i njuries of any kind to her right leg. Indicates pain wraps all the way around her right thigh area and the mid section of her right lower leg. Triage Nursing Assessment: Patient arrived to ED via ambulance. She is alert and oriented and answering questions appropriately. No visual differences noted between right and left lower leg during physical examination. Both legs noted to have lymphadema. No warmth noted. Pedal pulse present. States pain level in leg increases when lifted off of the bed but pain doesn't radiate when leg is moved. Physician History: Patient is a 50-year-old morbidly obese white female with chronic lymphedema of both lower legs who presents with pain in the right leg. This occurred while she was laying in bed the pain starts in the proximal thigh and radiates down into the lower leg. She is not on any blood thinners she has no complaint of fever chills or sweats she denies any obvious injury. Method of Injury: unknown Occurred: just prior to arrival Quality: constant, aching Severity of Pain-Max: moderate Severity of Pain-Current: moderate Lower Extremities Pain: leg: right, knee: right, thigh: right Modifying Factors: Improves With: movement Associated Symptoms: unable to bear weight Allergies/Adverse Reactions: adhesive tape Allergy (Mild, Verified 07/29/21 21:34) Rash cephalexin monohydrate [From Keflex] Allergy (Verified 07/29/21 21:34) meperidine HCl [From Demerol] Allergy (Verified 07/29/21 21:34) Home Medications: Famotidine [Pepcid] 40 mg PO BID 10/23/16 [History] Fluticasone/Salmeterol 115/ [Advair Hfa Common canister*] 2 puff IH BIDRT 10/23/16 [History] Levothyroxine Sodium [Synthroid] 200 mcg PO DAILY 10/23/16 [History] Albuterol 8 gm Mdi Hfa [Ventolin Hfa MDI] 2 puffs OINH DAILY 04/03/20 [History] Brexpiprazole [Rexulti] 1 tab PO DAILY 04/03/20 [History] Cetirizine HCl [Zyrtec] 1 tab PO DAILY 04/03/20 [History] Montelukast Sodium 10 mg [Singulair 10 MG] 1 tab PO DAILY 04/03/20 [History] Topiramate 1 tab PO DAILY 04/03/20 [History] Hx Tetanus, Diphtheria Vaccination/Date Given: Yes Hx Influenza Vaccination/Date Given: No (refuses) Hx Pneumococcal Vaccination/Date Given: No (refuses) Immunizations Up to Date: Yes Travel Risk - International Travel Have you traveled outside of the country in past 3 weeks: No - Coronavirus Screening Are you exhibiting any of the following symptoms?: No Close contact with a COVID-19 positive Pt in past 14-21 Days: No - Vaccine Status Have you recieved a Covid-19 vaccination: No - Review of Systems Constitutional: No Fever, No Chills Eyes: No Symptoms Ears, Nose, & Throat: No Symptoms Respiratory: No Cough, No Dyspnea Cardiac: No Chest Pain, No Edema, No Syncope Abdominal/Gastrointestinal: No Abdominal Pain, No Nausea, No Vomiting, No Diarrhea Genitourinary Symptoms: No Dysuria Musculoskeletal: No Back Pain, No Neck Pain Skin: No Rash Neurological: No Dizziness, No Focal Weakness, No Sensory Changes Psychological: No Symptoms Endocrine: No Symptoms All Other Systems: Reviewed and Negative - Past Medical History Pertinent Past Medical History: Yes Neurological History: No Pertinent History ENT History: No Pertinent History Cardiac History: Other Respiratory History: Bronchitis, COPD, Other Endocrine Medical History: Adrenal Insufficiency, Hypothyroidism Musculoskeletal History: Arthritis, Osteoarthritis GI Medical History: GERD, Gallbladder Disease, Polyps History: Other Psycho-Social History: Anxiety, Depression Female Reproductive Disorders: Other 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 Pt notes seasonal allergies. 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 - Past Surgical History Past Surgical History: Yes Neuro Surgical History: No Pertinent History Cardiac: No Pertinent History Respiratory: No Pertinent History Gastrointestinal: Cholecystectomy Genitourinary: No Pertinent History Musculoskeletal: No Pertinent History Female Surgical History: Other Other Surgical History: LAPROSCOPIC SURGERY. TUBES IN TIFFANI EARS. polyp removed from stomach - Social History Smoking Status: Never smoker Exposure to second hand smoke: Yes (family) Drug Use: none Patient Lives Alone: Yes - Nursing Vital Signs Nursing Vital Signs: Initial Vital Signs Temperature 98.4 F 07/29/21 21:37 Pulse Rate 76 07/29/21 21:37 Respiratory Rate 20 07/29/21 21:37 Blood Pressure 161/101 07/29/21 21:37 O2 Sat by Pulse Oximetry 95 07/29/21 21:37 Pain Scale Pain Intensity 7 - Physical Exam General Appearance: mild distress, alert Eyes, Ears, Nose, Throat Exam: moist mucous membranes Neck Exam: non-tender, supple Cardiovascular/Respiratory Exam: chest non-tender, normal breath sounds, regular rate/rhythm, no respiratory distress Gastrointestinal/Abdominal Exam: non-tender, guarding Back Exam: normal inspection, No vertebral tenderness Hips Exam: right: pain, soft tissue tenderness, swelling Legs Exam: right leg: pain, soft tissue tenderness, swelling Knees Exam: right knee: pain, soft tissue tenderness, swelling Ankle Exam: bilateral ankle: non-tender, normal inspection, normal range of motion Foot Exam: bilateral foot: non-tender, normal inspection, normal range of motion Neuro/Tendon Exam: normal sensation, normal motor functions Mental Status Exam: alert, oriented x 3, cooperative Skin Exam: normal color, warm, dry SpO2 Interpretation: normal SpO2: 96 O2 Delivery: Room Air - Course Nursing assessment & vital signs reviewed: Yes - Radiology Exams Lower Leg X-ray Interpretation: Reviewed by me, Negative Femur X-ray Interpretation: Reviewed by me, Negative - Radiology Ultrasound Exam Right Venous Lower Extremity Ultrasound: tele radiology report Ordered Tests: Active Orders 24 hr Category Date Time Status FEMUR Stat Exams 07/29/21 21:50 Taken LOWER LEG Stat Exams 07/29/21 21:50 Taken VENOUS UNILAT/LIMITED EXTREMIT [US] Stat Exams 07/30/21 00:00 Taken CBC W DIFF Stat Lab 07/29/21 22:25 Completed CMP Stat Lab 07/29/21 22:25 Completed D-DIMER QUANTITATIVE Stat Lab 07/29/21 22:25 Completed Medication Summary Discontinued Medications Generic Name Dose Route Start Last Admin Trade Name Freq PRN Reason Stop Dose Admin Hydromorphone HCl 1 mg 07/29/21 23:04 Hydromorphone 1 Mg/1ml Inj 1 Mg/Ml Syringe IV 07/29/21 23:05 STAT ONE Lab/Rad Data: Laboratory Result Diagrams 07/29/21 22:25 07/29/21 22:25 Laboratory Results 07/29/21 07/29/21 07/29/21 Range/Units 22:25 22:25 22:25 WBC 7.9 (4.0-10.5) K/mm3 RBC 4.32 (4.1-5.4) M/mm3 Hgb 12.6 (12.0-16.0) gm/dl Hct 39.6 (35-47) % MCV 91.7 (78-100) fl MCH 29.2 (26-32) pg MCHC 31.8 L (32-36) g/dl RDW 14.4 H (11.5-14.0) % Plt Count 235 (150-450) K/mm3 MPV 9.8 (7.5-11.0) fl Gran % 57.8 (36.0-66.0) % Eos # (Auto) 0.30 (0-0.5) Absolute Lymphs (auto) 2.33 (1.0-4.6) Absolute Monos (auto) 0.65 (0.0-1.3) Lymphocytes % 29.7 (24.0-44.0) % Monocytes % 8.3 (0.0-12.0) % Eosinophils % 3.8 (0.00-5.0) % Basophils % 0.4 (0.0-0.4) % Absolute Granulocytes 4.54 (1.4-6.9) Basophils # 0.03 (0-0.4) D-Dimer 556 H* (215-500) ng/mL Sodium 138 (137-145) mmol/L Potassium 4.6 (3.5-5.1) mmol/L Chloride 99 (98-107) mmol/L Carbon Dioxide 29 (22-30) mmol/L Anion Gap 14.3 (5-15) MEQ/L BUN 11 (7-17) mg/dL Creatinine 1.07 H (0.52-1.04) mg/dL Estimated GFR 57.5 ML/MIN Glucose 114 H (74-106) mg/dL Calcium 9.2 (8.4-10.2) mg/dL Total Bilirubin 0.60 (0.2-1.3) mg/dL AST 24 (14-36) U/L ALT 24 (0-35) U/L Alkaline Phosphatase 81 (38-126) U/L Serum Total Protein 6.3 (6.3-8.2) g/dL Albumin 4.1 (3.5-5.0) g/dL - Progress Progress: pain not gone completely - Departure Departure Disposition: Home Clinical Impression: Right leg pain Condition: Stable Critical Care Time: No Referrals: LADONNA WEAVER MD [Primary Care Provider] - Follow up/PCP as directed Additional Instructions: If the pain continues or worsens see your family doctor or return to the ER Prescriptions: Hydrocodone/Acetaminophen [Hydrocodone-Acetamin 5-325 mg] 1 tab PO Q6HPRN PRN 3 Days #12 tablet MDD 4 PRN Reason: Pain
[2021-07-29 22:53] LABS: ALBUMIN 4.1 g/dL (3.5-5.0); ANION GAP 14.3 MEQ/L (5-15); BILIRUBIN,TOTAL 0.6 mg/dL (0.2-1.3); Calcium 9.2 mg/dL (8.4-10.2); Creatinine 1 1.07 mg/dL (0.52-1.04); EST GLOMERULAR FILTRATION RATE 57.5 ML/MIN; Potassium 4.6 mmol/L (3.5-5.1); Total Protein 6.3 g/dL (6.3-8.2)
[2021-07-29] MEDS ORDERED: Hydromorphone 1 mg/ml Injection IV ONE (23:04)
[2021-07-30] MEDS ORDERED: NORCO 5/325 MG PO ONE (01:04)
[2021-07-30] MEDS ORDERED: Hydromorphone 1 mg/ml Injection ONE (01:11)
[2021-07-30] MEDS ORDERED: NORCO 5/325 MG ONE (01:11)
[2021-07-30 02:08] VITALS: BP 108/67; PULSE 84; O2SAT 97
--- NOTE | 2021-07-30 07:51 | XRAY ---
Indication: Pain. Comparison: None 2 view right femur demonstrates osteopenia and moderate/advanced tricompartmental knee degenerative changes, greatest lateral compartment. No other bony, articular, or soft tissue abnormalities.
--- NOTE | 2021-07-30 07:51 | XRAY ---
Indication: Pain. Comparison: None 2 view right lower leg demonstrates osteopenia and moderate/advanced tricompartmental knee degenerative changes, greatest lateral compartment. No other bony, articular, or soft tissue abnormalities.
--- NOTE | 2021-07-30 08:01 | XRAY ---
Indication: Pain. Two-dimensional sonogram and color Doppler imaging of the major venous vessels of the right leg performed. Comparison: None No thrombus seen in the examined deep venous vessels of the right leg including greater saphenous vein. Veins demonstrate normal compressibility. Venous waveforms are normal with and without augmentation. Impression: Right leg negative for DVT. Comment: Preliminary report was given.
== END 2021-07-30 02:05 | disposition home or self-care (01) ==
LOC: ED 21:26
DX: M79.651 Pain in right thigh (principal); I89.0 Lymphedema, not elsewhere classified; Z79.891 Long term (current) use of opiate analgesic; E66.01 Morbid (severe) obesity due to excess calories; J42 Unspecified chronic bronchitis; E03.9 Hypothyroidism, unspecified
CPT/HCPCS: 36415; 73552; 73590; 80053; 85025; 85379; 86140; 93971; 96372; 99284; J1170; A9270-GY

== ENCOUNTER 2024-09-18 16:27 | Emergency (ER) | payer MEDICARE ==
[2024-09-18 16:42] VITALS: RESP 22; TEMP 97.9
[2024-09-18] MEDS ORDERED: NEOSYNEPHRINE 0.5% NASAL SPRAY/DROPS ONE (16:55)
[2024-09-18 17:34] VITALS: BP 128/82; PULSE 96; O2SAT 97
--- NOTE | 2024-09-18 18:26 | ERPHSYRPT ---
- History of Present Illness Time Seen by Provider: 09/18/24 16:39 Source: patient Exam Limitations: no limitations Patient Subjective Stated Complaint: Pt states "I have had a nose bleed on and off for the past three days and today it was really bad." Triage Nursing Assessment: PT presented alert and oriented X3, skin pwd. Pt ambulates with a slow gait, able to speak in clear full sentences. pt has bright red blood on her arms and on her face. NO active bleeding at this time. Physician History: 53-year-old female presented in the ER with with complains of left nostril bleeding off-and-on for the last 2 to 3 days and getting worse today. Patient reports she has URI symptoms for almost 1 week and feels stuffiness and dryness in the nose. She has bleeding from left nostril. I did not appreciate any obvious lesion on exam. I have made patient to blow up nose to dislodge the clot if there is any but no bleeding. I have sprayed with Ricardo-Synephrine and packed for a few minutes, on reevaluation she does not have any bleeding. I have discussed with patient and family about nasal packing with Rhino Rocket if has bleeding again but it did not happen here. He has positive influenza A, discussed with patient and family in detail about role of Tamiflu and they want to to go ahead with it. She is given the first dose in here and will send the prescription to the pharmacy. Patient is not hypotensive, dizzy or lightheaded. No chest pain palpitations or shortness of breath but what she has at her baseline. Stable for discharge Allergies/Adverse Reactions: adhesive tape Allergy (Mild, Verified 07/29/21 21:34) Rash cephalexin monohydrate [From Keflex] Allergy (Verified 07/29/21 21:34) meperidine HCl [From Demerol] Allergy (Verified 07/29/21 21:34) Home Medications: Famotidine [Pepcid] 40 mg PO BID 10/23/16 [History] Fluticasone/Salmeterol / [Advair Hfa Common canister*] 2 puff IH BIDRT 10/23/16 [History] Levothyroxine Sodium [Synthroid] 200 mcg PO DAILY 10/23/16 [History] Albuterol 8 gm Mdi Hfa [Ventolin Hfa MDI] 2 puffs OINH DAILY 04/03/20 [History] Brexpiprazole [Rexulti] 1 tab PO DAILY 04/03/20 [History] Cetirizine HCl [Zyrtec] 1 tab PO DAILY 04/03/20 [History] Montelukast Sodium 10 mg [Singulair 10 MG] 1 tab PO DAILY 04/03/20 [History] Topiramate 1 tab PO DAILY 04/03/20 [History] Hx Tetanus, Diphtheria Vaccination/Date Given: Yes Hx Influenza Vaccination/Date Given: No (refuses) Hx Pneumococcal Vaccination/Date Given: No (refuses) Immunizations Up to Date: No Travel Risk - International Travel Have you traveled outside of the country in past 3 weeks: No - Emerging Infectious Disease Are you exhibiting symptoms associated with any current EIDs: No - Review of Systems Constitutional: No Symptoms Ears, Nose, & Throat: Nose Pain, Nose Congestion Respiratory: No Symptoms Cardiac: No Symptoms Musculoskeletal: No Symptoms Skin: No Symptoms Neurological: No Symptoms - Past Medical History Pertinent Past Medical History: Yes Neurological History: No Pertinent History ENT History: No Pertinent History Cardiac History: Other Respiratory History: Bronchitis, COPD, Other Endocrine Medical History: Adrenal Insufficiency, Hypothyroidism Musculoskeletal History: Arthritis, Osteoarthritis GI Medical History: GERD, Gallbladder Disease, Polyps History: Other Psycho-Social History: Anxiety, Depression Female Reproductive Disorders: Other 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 Pt notes seasonal allergies. 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 - Past Surgical History Past Surgical History: Yes Neuro Surgical History: No Pertinent History Cardiac: No Pertinent History Respiratory: No Pertinent History Gastrointestinal: Cholecystectomy Genitourinary: No Pertinent History Musculoskeletal: No Pertinent History Female Surgical History: Other Other Surgical History: LAPROSCOPIC SURGERY. TUBES IN TIFFANI EARS. polyp removed from stomach - Female History Hx Last Menstrual Period: no periods at all Hx Now: No - Social History Smoking Status: Never smoker Exposure to second hand smoke: Yes (family) Drug Use: none Patient Lives Alone: Yes - Social Determinants of Health Will the patient participate in the screening: Declined to provide - Nursing Vital Signs Nursing Vital Signs: Initial Vital Signs Temperature 97.9 F 09/18/24 16:35 Pulse Rate 98 H 09/18/24 16:35 Respiratory Rate 22 09/18/24 16:35 Blood Pressure 131/91 09/18/24 16:35 O2 Sat by Pulse Oximetry 96 09/18/24 16:35 Pain Scale Pain Intensity 0 - Physical Exam General Appearance: no apparent distress, alert Eye Exam: bilateral eye: normal inspection, PERRL, EOMI Ear Exam: bilateral ear: auricle normal, canal normal, TM normal Nasal Exam: dried blood Throat Exam: normal, pharynx normal, No dental tenderness Neck Exam: normal inspection, full range of motion Cardiovascular/Respiratory Exam: normal breath sounds, regular rate/rhythm Neurologic Exam: alert, oriented x 3, cooperative, 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 Skin Exam: normal color SpO2 Interpretation: normal SpO2: 97 O2 Delivery: Room Air Ordered Tests: Medication Summary Discontinued Medications Generic Name Dose Route Start Last Admin Trade Name Lizbeth PRN Reason Stop Dose Admin Phenylephrine HCl Confirm 09/18/24 16:55 Neosynephrine 0.5% Nasal [place]/Drops Administered 09/18/24 16:56 Dose 15 ml .ROUTE .[employer] [facility] Lab/Rad Data: Laboratory Results 09/18/24 Range/Units 17:48 Influenza Type A Ag POSITIVE A (NEGATIVE) Influenza Type B Ag NEGATIVE (NEGATIVE) RSV (PCR) NEGATIVE (NEGATIVE) SARS-CoV-2 (PCR) NEGATIVE (NEGATIVE) - Progress Progress: improved Progress Note: 09/18/24 18:40 53-year-old female presented in the ER with with complains of left nostril bleeding off-and-on for the last 2 to 3 days and getting worse today. Patient reports she has URI symptoms for almost 1 week and feels stuffiness and dryness in the nose. She has bleeding from left nostril. I did not appreciate any obvious lesion on exam. I have made patient to blow up nose to dislodge the clot if there is any but no bleeding. I have sprayed with Ricardo-Synephrine and packed for a few minutes, on reevaluation she does not have any bleeding. I have discussed with patient and family about nasal packing with Rhino Rocket if has bleeding again but it did not happen here. He has positive influenza A, discussed with patient and family in detail about role of Tamiflu and they want to to go ahead with it. She is given the first dose in here and will send the prescription to the pharmacy. Patient is not hypotensive, dizzy or lightheaded. No chest pain palpitations or shortness of breath but what she has at her baseline. Stable for discharge Counseled pt/family regarding: lab results, diagnosis, need for follow-up Medical Desision Making - Independent Historian Additional History obtained from: Relative/friend - Diagnostic Testing Diagnostic test were ordered, analyzed, and reviewed by me: Yes - Risk of complications The pt has a mod risk of morbidity or mortality based on: Need for prescription drug management - Departure Departure Disposition: Home Clinical Impression: Epistaxis, Influenza A Condition: Stable Critical Care Time: No Referrals: MAYRA VAZQUEZ JR [Primary Care Provider] - Follow up with PCP 1 day Instructions: Nosebleeds (DC), Flu in adults - ED discharge instructions Additional Instructions: Apply firm pressure for 5 minutes if has bleeding again. Use humidifier in the room to keep it moist and avoid dryness. Take Tylenol as needed for pain. Return to ER if has bleeding again. Prescriptions: Oseltamivir 75 mg [Tamiflu 75MG Capsule] 75 mg PO BID #10 cap
[2024-09-18 18:31] LABS: INFLUENZA B NEGATIVE (NEGATIVE); RESPIRATORY SYNCTIAL VIRUS NEGATIVE (NEGATIVE); SARS-CoV-2 Xpert Express NEGATIVE (NEGATIVE)
[2024-09-18 18:37] LABS: INFLUENZA A POSITIVE (NEGATIVE)
[2024-09-18] MEDS ORDERED: Tamiflu 75MG Capsule PO ONE (18:40)
[2024-09-18] MEDS: Tamiflu 75MG Capsule PO ONE (18:41)
== END 2024-09-18 18:42 | disposition home or self-care (01) ==
LOC: ED 16:27
DX: R04.0 Epistaxis (principal); J10.1 Influenza due to other identified influenza virus with other respiratory manifestations; Z79.899 Other long term (current) drug therapy
CPT/HCPCS: 0241U; 99283; A9270-GY